=== PATIENT | female | born 1965 | race Caucasian/White ===

== ENCOUNTER → 2023-12-04 07:47 | Outpatient (REF) | payer OTHER, SELFPAY | LOC: WDC 07:47 | PROVIDERS: ATTENDING PHYSICIAN Nurse Practitioner Adult Health; FAMILY PHYSICIAN Family Medicine | DX: Z12.31 Encounter for screening mammogram for malignant neoplasm of breast (principal); Z01.419 Encounter for gynecological examination (general) (routine) without abnormal findings | CPT/HCPCS: 77063; 77067 ==

== ENCOUNTER 2024-07-10 16:05 | Emergency (ER) | payer OTHER, SELFPAY ==
[2024-07-10 16:09] VITALS: BP 133/84
[2024-07-10] MEDS: TYLENOL 1000 MG PO (16:18)
[2024-07-10 16:52] LABS: % Basophils 0.4 % (0-2); % Immature Granulocytes 0.4 % (0-0.5); % Lymphocytes 2.9 % (20.5-51.1); % Monocytes 13.4 % (1.7-9.3); % Neutrophils 82.9 % (42.2-75.2); Absolute Lymphocytes 0.2 10^3/uL (1.2-3.4); Absolute Neutrophils 5.9 10^3/uL (1.4-6.5); Hematocrit 43.2 % (37.0-47.0); Hemoglobin 14.7 g/dL (12.0-16.0); Mean Corpuscular Hgb 30.9 pg (27.0-31.0); Mean Corpuscular Volume 90.9 fL (81.0-99.0); Mean Platelet Volume 10.5 fL (7.4-10.4); Nucleated Red Blood Cells % 0 %; Platelet Count 197 10^3/uL (130-400); Red Blood Cell Count 4.75 10^6/uL (4.20-5.40); Red Cell Dist. Width 12.5 % (11.5-14.5); White Blood Cell Count 7.2 10^3/uL (4.8-10.8)
[2024-07-10 17:17] LABS: ALT (SGPT) 19 U/L (0-35); AST (SGOT) 24 U/L (14-36); Alkaline Phosphatase 60 U/L (38-126); Blood Urea Nitrogen 13 mg/dl (7-17); Calcium 9.7 mg/dl (8.4-10.2); Carbon Dioxide 24 mmol/L (22-30); Chloride 94 mmol/L (98-107); Glucose 108 mg/dl (70-99); Sodium 132 mmol/L (135-145); Total Bilirubin 0.8 mg/dl (0.2-1.3); Total Protein 7.6 g/dl (6.3-8.2); eGFR > 60.00
[2024-07-10 17:39] LABS: COVID-19 Antigen Positive (Negative)
--- NOTE | 2024-07-10 18:08 | ED.GENMED ---
History of Present Illness
General
Chief Complaint: Cold/Flu/URI Symptoms
Source: patient
Exam Limitations: none
Time Seen by Provider: 07/10/24 18:06
Nursing documentation reviewed up to this point in time: agreed with
History of Present Illness
History of Present Illness:
58-year-old female with history of multiple sclerosis, HTN, anemia states 2 days ago she developed sinus stuffiness, cough, increased phlegm and today developed a fever. No known sick contacts. No recent travel. She denies chest pain or trouble
breathing. Denies abdominal pain, N/V/D/C
Past History
Past History
ED Past Medical History: HTN and Other (MS)
ED Past Surgical History: None
Social History
Tobacco: Non-smoker
Alcohol: None
Personal:
Living: with family
Employment: Not employed
Family History
Family History: Hypertension
Review of Systems
Review of Systems
Allergies reviewed?: Yes
All Other Systems: ROS reviewed and negative except as documented in HPI and ROS
Constitutional: Reports fever
EENT: Reports other (Sinus stuffiness); Denies sore throat
Respiratory: Reports cough; Denies trouble breathing
Cardiac: Reports chest pain
ABD/GI: Reports abdominal pain, nausea, vomiting and diarrhea; Denies anorexia
: Denies dysuria, frequency or difficulty voiding
Musculoskeletal: Reports no symptoms
Skin: Reports no symptoms
Neurological: Reports no symptoms
Phy Exam
Physical Exam
Physical Exam:
GENERAL: No acute distress. A&Ox3.
CONSTITUTIONAL: T 102.2
EYES: clear, conjunctivae normal
ENMT: moist mucus membranes, Pharynx nl
RESPIRATORY: Regular respirations, nonlabored, lungs clear.
CARDIOVASCULAR: Regular rate and rhythm, no murmurs, no rubs.
GI: Soft, nontender, normal BS
MUSCULOSKELETAL: Moves with ease. Well perfused.
SKIN: Warm, dry, pink
PSYCH: Normal mood and affect. Well kept, interactive and appropriate
NEUROLOGIC: Awake, alert and oriented. No focal neurological deficits
Sepsis
Sepsis Screening
Sepsis Assessment: Sepsis Ruled Out
Sepsis Screen
Sepsis Screen: Sepsis Ruled Out
Date: 07/11/24
Time: 19:06
Course
Orders/Labs/Results
Orders:
Orders
07/10/24 16:16
Acetaminophen [Tylenol] 1,000 mg .ROUTE .STK-MED ONE
07/10/24 16:18
Acetaminophen [Tylenol] 1,000 mg PO NOW STA
07/10/24 16:29
COVID-19 Antigen Urgent
Source: Nasal Swab
Complete Blood Count/With Diff Urgent
Comprehensive Metabolic Panel Urgent
Influenza A+B Rapid Molecular Urgent
BEREKET Source: Nasal Swab
Specimen Description:
Abnormal Lab Results
07/10/24
16:29
MPV 10.5 H fL
(7.4-10.4)
Absolute Lymphs (auto) 0.2 L 10^3/uL
(1.2-3.4)
Absolute Monos (auto) 1.0 H 10^3/uL
(0.1-0.6)
Neutrophils % 82.9 H %
(42.2-75.2)
Lymphocytes % 2.9 L %
(20.5-51.1)
Monocytes % 13.4 H %
(1.7-9.3)
Sodium 132 L mmol/L
(135-145)
Chloride 94 L mmol/L
(98-107)
Glucose 108 H mg/dl
(70-99)
SARS-CoV-2 Antigen Positive A
(Negative)
07/10/24 16:29
07/10/24 16:29
Vital Signs
Initial and Last Documented VS:
Initial Vital Signs
Temp Pulse Resp BP Pulse Ox
102.2 F H 109 18 133/84 95
07/10/24 16:09 07/10/24 16:09 07/10/24 16:09 07/10/24 16:09 07/10/24 16:09
Last Documented Vital Signs
Temp Pulse Resp BP Pulse Ox
102.2 F H 109 18 133/84 95
07/10/24 16:09 07/10/24 16:09 07/10/24 16:09 07/10/24 16:09 07/10/24 16:09
MDM/Problems Addressed
Differential Diagnosis Includes:
Flu, covid
MDM/Problems Addressed:
58-year-old female with history of multiple sclerosis, HTN, anemia states 2 days ago she developed sinus stuffiness, cough, increased phlegm and today developed a fever. No known sick contacts. No recent travel. She denies chest pain or trouble
breathing. Denies abdominal pain, N/V/D/C
Temp 102.2
6:00 PM:
COVID-positive
Flu negative
After Tylenol temp 99.4 HR 88
Stable for discharge
*Critical Care Note
Total Time (30-74mins, 75-104mins- exclusive of procedures): Not Applicable
ED Attending Note
-
Portions of this chart may have been created with voice recognition software.� Occasional wrong word or��sound alike� substitutions may have occurred due to the inherent limitations of voice recognition software.
Discharge Plan
Departure
Patient Disposition: Home (Routine Discharge)
Date of Disposition: 07/10/24
Time of Disposition: 18:13
Patient with high blood pressure during this ER visit?: No
Condition: Good
Covid-19: Confirmed COVID-19
Discharge Problem:
COVID-19
Instructions: COVID-19 - ED discharge instructions, Coronavirus Home Quarantine
Prescriptions:
No Action
lisinopril 10 MG tablet
10 mg PO DAILY
hydrochlorothiazide 25 MG tablet
25 mg PO DAILY
metoprolol succinate 25 MG tablet extended release 24 hr
25 mg PO DAILY
acetaminophen 325 MG tablet
650 mg PO Q4HPRN PRN (Reason: HEADACHE/MILD PAIN) 0RF
ferrous sulfate [FeroSul] 325 MG tablet
325 mg PO HS 0RF
cholecalciferol (vitamin D3) [Vitamin D3] 2,000 UNIT capsule
2,000 unit PO DAILY
Referrals:
Poppy Duvall MD [Family Provider] - As needed
Activity Restrictions/Additional Instructions:
As we discussed, you have COVID. Tylenol or ibuprofen as needed for fever or bodyaches
Drink plenty of fluids to stay hydrated
Interventions
Interventions:
*Nursing Disposition Last Done: 07/10/24 18:52
ED- Pulmonary Assessment Last Done: 07/10/24 18:52
Discharge Date and Time
Discharge Date/Time: 07/10/24 18:52
Print Language: NAMIBIAN
== END 2024-07-10 18:52 | disposition home or self-care (01) ==
LOC: EMR 16:05
PROVIDERS: Emergency Medicine; EMERGENCY PHYSICIAN Emergency Medicine; FAMILY PHYSICIAN Family Medicine
DX: U07.1 COVID-19 (principal); I10 Essential (primary) hypertension; G35 Multiple sclerosis; Z11.52 Encounter for screening for COVID-19
CPT/HCPCS: 99283; 80053; 85025; 87502; 87811

== ENCOUNTER → 2025-02-15 11:59 | Outpatient (REF) | payer OTHER, SELFPAY | LOC: PAVMRI 11:59 | PROVIDERS: ATTENDING PHYSICIAN Psychiatry & Neurology Neurology; FAMILY PHYSICIAN Family Medicine | DX: G35 Multiple sclerosis (principal) | CPT/HCPCS: 70553; 72156; A9575 ==

== ENCOUNTER → 2025-02-20 10:42 | Outpatient (REF) | payer OTHER, SELFPAY | LOC: PAVMRI 10:42 | PROVIDERS: ATTENDING PHYSICIAN Psychiatry & Neurology Neurology; FAMILY PHYSICIAN Family Medicine | DX: G35 Multiple sclerosis (principal) | CPT/HCPCS: 72157; A9575 ==